=== PATIENT | male | born 1970 | race African-American/Black ===

== ENCOUNTER 2023-02-15 18:56 | Inpatient (IN) | payer OTHER, SELFPAY ==
[~2023-02-15] VITALS: Ht 175.3 cm; Wt 100.3 kg
[~2023-02-15 18:56] MED LIST: INSULIN 70/30 SQ; LISI20TA24 PO; [UNRECOGNIZED DRUG - CODE] SQ
[2023-02-15] MEDS ORDERED: DEXTROSE 50%-WATER 25 GM/50 ML SYRINGE IVP ONE ×4 (19:07→22:15)
[2023-02-15 20:25] LABS: APPEARANCE,URINE CLEAR (CLEAR); BILIRUBIN,URINE NEGATIVE (NEGATIVE); COLOR,URINE LIGHT YELLOW (YELLOW); GLUCOSE, URINE (UA) 70-100 mg/dL (NEGATIVE); KETONES,URINE NEGATIVE (NEGATIVE); LEUKOCYTE ESTERASE ,URINE NEGATIVE (NEGATIVE); NITRATE,URINE NEGATIVE (NEGATIVE); OCCULT BLOOD,URINE NEGATIVE (NEGATIVE); PROTEIN,URINE TRACE mg/dL (NEGATIVE); SPECIFIC GRAVITIY, URINE 1.018 (1.003-1.030); UROBILINOGEN,URINE <=1.0 mg/dL (<=1.0)
[2023-02-15 20:31] LABS: ALCOHOL, URINE DRUG SCREEN NEGATIVE (NEGATIVE); AMPHET/METH SCREEN,URINE NEGATIVE (NEGATIVE); BARBITURATE SCREEN, URINE NEGATIVE (NEGATIVE); BENZODIAZEPINES SCREEN,URINE NEGATIVE (NEGATIVE); CANNABINOID SCREEN,URINE POSITIVE (NEGATIVE); COCAINE SCREEN,URINE NEGATIVE (NEGATIVE); METHADONE SCREEN, URINE NEGATIVE (NEGATIVE); OPIATE SCREEN,URINE NEGATIVE (NEGATIVE); PHENCYCLIDINE SCREEN,URINE NEGATIVE (NEGATIVE)
[2023-02-15 20:34] LABS: BACTERIA,URINE None Seen /HPF (None Seen); RBC,URINE None Seen /HPF (0-2); SQUAMOUS EPITHELIAL CELL,UR None Seen /LPF (None Seen); WBC,URINE None Seen /HPF (0-5)
[2023-02-15 20:38] LABS: BASOPHILS % (AUTO) 0.4 % (0.0-2.0); EOSINOPHILS % (AUTO) 0.1 % (1.0-6.0); HEMATOCRIT 41.1 % (41-53); HEMOGLOBIN 13.3 g/dL (13.5-17.5); LYMPHOCYTES # (AUTO) 1.1 K/uL (1.0-4.8); LYMPHOCYTES % (AUTO) 5.9 % (22.0-44.0); MEAN CORPUSCULAR HEMOGLOBIN 27.3 pg (26.0-34.0); MEAN CORPUSCULAR HGB CONC 32.4 G/dL (31.0-37.0); MEAN CORPUSCULAR VOLUME 84 fL (80-100); MONOCYTES % (AUTO) 5.4 % (2.0-9.0); NEUTROPHILS # (AUTO) 15.7 K/uL (1.8-7.7); PLATELET COUNT (AUTO) 223 K/uL (150-450); RED BLOOD CELL COUNT(AUTO) 4.88 MIL/uL (4.50-5.90); WHITE BLOOD COUNT (AUTO) 17.8 K/uL (4.5-11.0)
[2023-02-15 20:39] LABS: NEUTROPHILS % (AUTO) 88.2 % (40.0-70.0)
[2023-02-15 20:56] LABS: ALANINE AMINOTRANSFERASE 42 U/L (12-78); ALBUMIN 3.9 g/dL (3.4-5.0); ALCOHOL, BLOOD (SERUM) < 3 mg/dL (0-10); ALKALINE PHOSPHATASE 98 U/L (46-116); ANION GAP 5 mmol/L (8-16); ASPARTATE AMINOTRANSFERASE 29 U/L (15-37); BILIRUBIN,TOTAL 0.4 mg/dL (0.1-1.0); CALCIUM, TOTAL 9.2 mg/dL (8.8-10.5); CARBON DIOXIDE 31 mmol/L (22-29); CHLORIDE 105 mmol/L (98-107); CREATININE 0.89 mg/dL (0.60-1.30); GLOMERULAR FILTR. RATE CALC > 60 mL/min (>60); LIPASE 24 U/L (16-77); SODIUM SERUM 141 mmol/L (136-145); TOTAL PROTEIN, SERUM 7.8 g/dL (6.4-8.2); TROPONIN I-HIGH SENSITIVITY 15 ng/L (<76); UREA NITROGEN, BLOOD 13 mg/dL (7-18)
[2023-02-15 20:58] LABS: LACTIC ACID 0.6 mmol/L (0.4-2.0)
[2023-02-15] MEDS ORDERED: DEXTROSE 10%-WATER 1,000 ML IV ONE ×2 (21:00→21:03)
[2023-02-15 21:02] LABS: GLUCOSE,RANDOM 39 mg/dL (70-110)
[2023-02-15 21:06] LABS: B-TYPE NATRIURETIC PEPTIDE 20 pg/mL (0-100)
[2023-02-15 21:26] LABS: COVID AG,FIA SOURCE NASAL SWAB
[2023-02-15] MEDS ORDERED: ONDANSETRON HCL 4 MG/2 ML VIAL IVP PRN (21:30)
[2023-02-15] MEDS ORDERED: DEXTROSE 50%-WATER 25 GM/50 ML SYRINGE IVP PRN (21:30)
[2023-02-15] MEDS ORDERED: ACETAMINOPHEN 325 MG TABLET PO PRN (21:30)
[2023-02-15] MEDS ORDERED: DEXTROSE 10%-WATER 1,000 ML IV SCH (21:30)
[2023-02-15] MEDS ORDERED: GLUCAGON,HUMAN RECOMBINANT 1 MG VIAL SQ PRN (21:30)
[2023-02-15 21:53] LABS: SARS-COV2 (COVID) ANTIGEN,FIA Negative (Negative)
[2023-02-15] MEDS ORDERED: [UNRECOGNIZED DRUG - OTHER] IV ONE ×2 (22:00)
[2023-02-15] MEDS ORDERED: DEXTROSE IV ONE ×2 (22:00)
[2023-02-15] MEDS ORDERED: RINGERS LACTATED IV ONE ×2 (22:00)
[2023-02-15 22:40] VITALS: BP 138/55; PULSE 47; RESP 18; TEMP 96
[2023-02-15] MEDS ORDERED: SODIUM CHLORIDE 0.9% 250 ML IV ONE (23:15)
[2023-02-15] MEDS: POTASSIUM CHL 10 MEQ/WATER 50 ML IV SCH (23:16)
[2023-02-15] MEDS: HEPARIN SODIUM,PORCINE 5,000 UNITS/ML VIAL SQ SCH (23:18)
[2023-02-16] VITALS (7 sets, daily range): BP systolic 128–155; BP diastolic 78–87; PULSE 48–66; RESP 14–24; TEMP 96.4–98.8
[2023-02-16 00:02] LABS: GLUCOMETER DEV NAME(LOC) ER.6; GLUCOSE,POINT OF CARE 118 MG/DL (70-110)
[2023-02-16 00:02] LABS: GLUCOMETER DEV NAME(LOC) ER.6; GLUCOSE,POINT OF CARE 48 MG/DL (70-110)
[2023-02-16 00:02] LABS: GLUCOMETER DEV NAME(LOC) ER.6; GLUCOSE,POINT OF CARE 138 MG/DL (70-110)
[2023-02-16] MEDS: POTASSIUM CHL 10 MEQ/WATER 50 ML IV SCH ×3 (00:12→02:32)
[2023-02-16 00:31] LABS: GLUCOSE,POINT OF CARE 79 MG/DL (70-110)
[2023-02-16 02:26] LABS: GLUCOMETER DEV NAME(LOC) ICUN.5; GLUCOSE,POINT OF CARE 81 MG/DL (70-110)
[2023-02-16 02:31] LABS: GLUCOMETER DEV NAME(LOC) ICUN.5; GLUCOSE,POINT OF CARE 180 MG/DL (70-110)
[2023-02-16 03:41] LABS: GLUCOSE,POINT OF CARE 98 MG/DL (70-110)
[2023-02-16 04:41] LABS: GLUCOSE,POINT OF CARE 174 MG/DL (70-110)
[2023-02-16 05:37] LABS: BASOPHILS % (AUTO) 0.3 % (0.0-2.0); EOSINOPHILS % (AUTO) 0 % (1.0-6.0); HEMATOCRIT 42.7 % (41-53); HEMOGLOBIN 13.8 g/dL (13.5-17.5); LYMPHOCYTES # (AUTO) 0.8 K/uL (1.0-4.8); LYMPHOCYTES % (AUTO) 8.8 % (22.0-44.0); MEAN CORPUSCULAR HEMOGLOBIN 27.3 pg (26.0-34.0); MEAN CORPUSCULAR HGB CONC 32.3 G/dL (31.0-37.0); MEAN CORPUSCULAR VOLUME 85 fL (80-100); MONOCYTES # (AUTO) 0.4 K/uL (0.1-1.0); MONOCYTES % (AUTO) 4.8 % (2.0-9.0); NEUTROPHILS # (AUTO) 7.5 K/uL (1.8-7.7); PLATELET COUNT (AUTO) 214 K/uL (150-450); RED BLOOD CELL COUNT(AUTO) 5.06 MIL/uL (4.50-5.90); RED CELL DISTRIBUTION WIDTH 14.7 % (11.5-14.5); WHITE BLOOD COUNT (AUTO) 8.7 K/uL (4.5-11.0)
[2023-02-16 05:48] LABS: ANION GAP 6 mmol/L (8-16); CALCIUM, TOTAL 8.8 mg/dL (8.8-10.5); CARBON DIOXIDE 27 mmol/L (22-29); CHLORIDE 103 mmol/L (98-107); CREATININE 0.83 mg/dL (0.60-1.30); GLOMERULAR FILTR. RATE CALC > 60 mL/min (>60); GLUCOSE,RANDOM 199 mg/dL (70-110); POTASSIUM 3.9 mmol/L (3.5-5.1); SODIUM SERUM 136 mmol/L (136-145); UREA NITROGEN, BLOOD 11 mg/dL (7-18)
[2023-02-16 05:49] LABS: NEUTROPHILS % (AUTO) 86.1 % (40.0-70.0)
[2023-02-16 05:51] LABS: GLUCOMETER DEV NAME(LOC) ICUN.5; GLUCOSE,POINT OF CARE 168 MG/DL (70-110)
[2023-02-16 06:01] LABS: PLATELET MORPHOLOGY COMMENT LARGE PLTS PRESENT; RBC MORPHOLOGY COMMENT NORMAL RBC MORPH
[2023-02-16 06:36] LABS: GLUCOSE,POINT OF CARE 170 MG/DL (70-110)
[2023-02-16] MEDS: HEPARIN SODIUM,PORCINE 5,000 UNITS/ML VIAL SQ SCH ×2 (08:56→15:56)
[2023-02-16] MEDS: DOCUSATE SODIUM 100 MG CAPSULE PO SCH ×2 (08:56→20:04)
[2023-02-16 09:41] LABS: GLUCOMETER DEV NAME(LOC) ICUN.5; GLUCOSE,POINT OF CARE 199 MG/DL (70-110)
[2023-02-16 09:41] LABS: GLUCOSE,POINT OF CARE 233 MG/DL (70-110)
[2023-02-16 09:41] LABS: GLUCOSE,POINT OF CARE 203 MG/DL (70-110)
[2023-02-16] MEDS ORDERED: ROSU10TA72 PO (09:46)
[2023-02-16] MEDS ORDERED: INSLAN SQ (09:46)
[2023-02-16] MEDS ORDERED: AMLO10TA55 PO (09:46)
[2023-02-16] MEDS ORDERED: HYDR25TA2 PO (09:46)
[2023-02-16] MEDS ORDERED: LISI-663 PO (09:46)
[2023-02-16] MEDS ORDERED: DEXTROSE 50%-WATER 25 GM/50 ML SYRINGE IVP PRN (11:00)
[2023-02-16] MEDS: INSULIN LISPRO 100 UNITS/ML SQ PRN ×3 (11:08→20:07)
[2023-02-16 15:21] LABS: GLUCOSE,POINT OF CARE 307 MG/DL (70-110)
[2023-02-16 15:31] LABS: GLUCOSE,POINT OF CARE 215 MG/DL (70-110)
[2023-02-16 18:51] LABS: GLUCOMETER DEV NAME(LOC) ICUN.5; GLUCOSE,POINT OF CARE 282 MG/DL (70-110)
[2023-02-16 20:16] LABS: GLUCOMETER DEV NAME(LOC) 5N.1C; GLUCOSE,POINT OF CARE 280 MG/DL (70-110)
[2023-02-16] MEDS ORDERED: INSULIN GLARGINE,HUM.REC.ANLOG 100 UNITS/ML SQ SCH (21:00)
[2023-02-17] VITALS: PULSE 60
[2023-02-17] MEDS: HEPARIN SODIUM,PORCINE 5,000 UNITS/ML VIAL SQ SCH ×2 (00:09→08:00)
[2023-02-17] MEDS: INSULIN LISPRO 100 UNITS/ML SQ PRN (00:14)
[2023-02-17 00:16] VITALS: BP 146/73; PULSE 54; RESP 17; TEMP 98.8
[2023-02-17 04:00] VITALS: PULSE 56
[2023-02-17 04:42] VITALS: BP 140/87; PULSE 69; RESP 17; TEMP 98.5
[2023-02-17 05:57] LABS: GLUCOMETER DEV NAME(LOC) 5S.2C; GLUCOSE,POINT OF CARE 253 MG/DL (70-110)
[2023-02-17 05:57] LABS: GLUCOMETER DEV NAME(LOC) 5S.2C; GLUCOSE,POINT OF CARE 109 MG/DL (70-110)
[2023-02-17 07:47] LABS: ANION GAP 6 mmol/L (8-16); CALCIUM, TOTAL 8.5 mg/dL (8.8-10.5); CARBON DIOXIDE 29 mmol/L (22-29); CHLORIDE 104 mmol/L (98-107); CREATININE 1.06 mg/dL (0.60-1.30); GLOMERULAR FILTR. RATE CALC > 60 mL/min (>60); GLUCOSE,RANDOM 100 mg/dL (70-110); POTASSIUM 4.6 mmol/L (3.5-5.1); SODIUM SERUM 139 mmol/L (136-145); UREA NITROGEN, BLOOD 15 mg/dL (7-18)
[2023-02-17 08:14] VITALS: BP 132/80; PULSE 70; RESP 18; TEMP 98
[2023-02-17] MEDS: DOCUSATE SODIUM 100 MG CAPSULE PO SCH (08:25)
[2023-02-17] MEDS ORDERED: ROSUVASTATIN CALCIUM 10 MG TABLET PO SCH (09:00)
[2023-02-17] MEDS ORDERED: LISINOPRIL 20 MG TABLET PO SCH (09:00)
[2023-02-17] MEDS ORDERED: AmLODIPine BESYLATE 10 MG TABLET PO SCH (09:00)
[2023-02-17 12:46] LABS: GLUCOMETER DEV NAME(LOC) 5S.1B; GLUCOSE,POINT OF CARE 128 MG/DL (70-110)
== END 2023-02-17 09:20 | disposition home or self-care (01) | DRG 637 ==
LOC: EMS 18:56 → ICU 21:53 → 5S 02-16 17:45
PROVIDERS: ADMIT Internal Medicine; ATTEND Internal Medicine
DX: E11.649 Type 2 diabetes mellitus with hypoglycemia without coma (principal); G93.41 Metabolic encephalopathy; R65.11 Systemic inflammatory response syndrome (SIRS) of non-infectious origin with acute organ dysfunction; E87.6 Hypokalemia; I10 Essential (primary) hypertension; Z20.822 Contact with and (suspected) exposure to COVID-19; Z79.4 Long term (current) use of insulin; Z79.899 Other long term (current) drug therapy
CPT/HCPCS: 71045; 80048; 80053; 80307; 81001; 82533; 82962; 83036; 83605; 83690; 83735; 83880; 84484; 85025; 87081; 93005; 99291; G0378; G0480; J1644; J1815; J3480; J7050; J7120; 36415-L1; 36415-TC